=== PATIENT | male | born 1970 | race Caucasian/White ===

== ENCOUNTER 2016-12-14 09:44 | Emergency (ER) | payer OTHER ==
[~2016-12-14] VITALS: Ht 185.4 cm; Wt 83.6 kg
[2016-12-14 10:15] VITALS: BP 131/81
--- NOTE | 2016-12-14 10:55 | NUR ---
Patient ambulated to bed 12.
--- NOTE | 2016-12-14 11:00 | NUR ---
PATIENT PRESENTS TO ED WITH c/o left knee swelling, pain progressed to entire leg x 1 wk;denies injury;hx OF anemia, migraine .DENIES N/V/D; SKIN IS PINK/WARM/DRY; AAOX4 WITH EVEN AND STEADY GAIT; LUNGS CLEAR BL; HR EVEN AND REGULAR; PT DENIES ANY FEVER, CP, SOB, OR COUGH AT THIS TIME; PATIENT STATES PAIN OF 3/10 AT THIS TIME;PATIENT POSITIONED FOR COMFORT; HOB ELEVATED; BEDRAILS UP X2; BED DOWN. ER MD MADE AWARE OF PT STATUS.
[2016-12-14 12:20] VITALS: BP 134/76
--- NOTE | 2016-12-14 12:20 | NUR ---
PT REFUSED TO TAKE AND SIGN DISCAHRAGE PAPERS;EXPLAINED TO PT THE BENEFITS OF DISCAHRGE OF DISCAHRAGE INSTRUCTION BUT PT STILL REFUSE;
== END 2016-12-14 12:20 | disposition home or self-care (01) ==
LOC: MED 09:44
DX: M25.462 Effusion, left knee (principal)
CPT/HCPCS: 73562; 99284; Q0092